=== PATIENT | male | born 1950 | race Caucasian/White ===

== ENCOUNTER 2017-11-20 12:31 | Emergency (ER) | payer BC ==
[~2017-11-20] VITALS: Ht 185.4 cm; Wt 118.2 kg
[2017-11-20 12:36] VITALS: TEMP 97.1
[2017-11-20] MEDS ORDERED: WELLBUTRIN XL300 M1 PO (12:43)
[2017-11-20] MEDS ORDERED: LASIX 20MG TABL20 MG PO (12:43)
[2017-11-20] MEDS ORDERED: ALDACTONE50 MG PO (12:43)
[2017-11-20 13:14] LABS: HEMATOCRIT 35.2 % (42.0-52.0); HEMOGLOBIN 12.9 g/dl (13.5-18.0); MEAN CELL VOLUME 101 fl (80.0-100.0); MEAN CORPUSCULAR HEMOGLOBIN 37 pg (27.0-31.0); MEAN CORPUSCULAR HGB CONC 37 g/dl (33.0-37.0); MEAN PLATELET VOLUME 12.8 fl (7.4-10.4); PLATELET COUNT 105 K/mm3 (130-400); RED BLOOD COUNT 3.49 M/mm3 (4.20-5.60)
[2017-11-20 13:18] LABS: INR 1.9 (0.8-3.0); PROTHROMBIN TIME 22.3 SECONDS (9.7-12.8)
[2017-11-20 13:21] LABS: PARTIAL THROMBOPLASTIN TIME 36.3 SECONDS (26.0-37.0)
[2017-11-20 13:24] LABS: ALANINE AMINOTRANSFERASE 63 U/L (21-72); ALBUMIN 2.6 gm/dL (3.5-5.0); ALKALINE PHOSPHATASE 261 U/L (50-136); ANION GAP 14 mmol/L (7-16); AST,SGOT 170 U/L (15-37); BLOOD UREA NITROGEN 40 mg/dL (9-20); CALCIUM 7.7 mg/dL (8.4-10.2); CARBON DIOXIDE 20 mmol/L (22-30); CHLORIDE 105 mmol/L (98-107); CREATININE, serum 1.35 mg/dL (0.66-1.25); GLUCOSE 119 mg/dL (74-106); LIPASE 1638 U/L (23-300); MAGNESIUM 2.7 mg/dL (1.6-2.3); PHOSPHOROUS 3.1 mg/dL (2.5-4.5); SODIUM 139 mmol/L (137-145); TOTAL PROTEIN 7.9 gm/dL (6.4-8.2)
[2017-11-20 13:26] LABS: BAND 8 % (0-10); EOSINOPHIL 1 % (0-4); LYMPHOCYTE 4 % (20.0-51.0); METAMYELOCYTE 2 % (0-0); NEUTROPHILS 73 % (42.0-75.2); PLATELET ESTIMATE DECREASED (NORMAL)
[2017-11-20 13:27] LABS: ACETAMINOPHEN < 10 ug/mL (10-30); ALCOHOL(ethanol),MEDICAL < 10 mg/dL; ANISOCYTOSIS 1+; POTASSIUM 1.9 mmol/L (3.4-5.0)
[2017-11-20 13:39] LABS: TROPONIN-I < 0.012 ng/mL (0.000-0.034)
[2017-11-20 14:20] LABS: BILIRUBIN,TOTAL 31.4 mg/dL (0.0-1.0)
[2017-11-20 14:41] LABS: AMMONIA 88 umol/L (11-35)
[2017-11-20 16:27] LABS: COLLECTION METHOD CLEAN CATCH
[2017-11-20 16:37] LABS: MUCOUS Present /lpf; PH 6 (5-8); SQUAMOUS EPITHELIAL 0-2 /hpf; URINE APPEARANCE Hazy; URINE BACTERIA None Seen /hpf; URINE BILIRUBIN Positive (NEGATIVE); URINE BLOOD Negative (NEGATIVE); URINE COLOR Amber; URINE GLUCOSE Negative (NEGATIVE); URINE KETONE Trace (NEGATIVE); URINE LEUKOCYTE ESTERASE Negative (NEGATIVE); URINE NITRATE Negative (NEGATIVE); URINE PROTEIN(semi-quant) Negative (NEGATIVE); URINE RBC None Seen /hpf; URINE UROBILINOGEN >=4.0 mg/dL (NEGATIVE)
[2017-11-20 17:10] VITALS: BP 102/46; PULSE 85
== END 2017-11-20 17:25 | disposition short-term general hospital (02) ==
LOC: COL.ER 12:31
PROVIDERS: Emergency Medicine
DX: K72.90 Hepatic failure, unspecified without coma (principal); K74.60 Unspecified cirrhosis of liver; E87.6 Hypokalemia
CPT/HCPCS: C1751; J2543; J3480; Q9967